=== PATIENT | female | born 1970 | race Caucasian/White ===

== ENCOUNTER → 2017-10-21 | Outpatient (CLI) | payer OTHER ==
[2017-10-21 16:07] LABS: ADD MAN DIFF? NO
[2017-10-21 16:13] LABS: BASO # 0.1 x10^3/uL (0.0-0.2); BASO % 1 % (0-3); EOS # 0.1 x10^3/uL (0.0-0.7); EOS % 1 % (0-3); HEMATOCRIT 43.6 % (36.0-47.0); HEMOGLOBIN 14.6 g/dL (12.0-15.5); LYMPH % 28 % (24-48); MEAN CORPUSCULAR HEMOGLOBIN 30 pg (25-35); MEAN CORPUSCULAR HGB CONC 34 g/dL (31-37); MEAN CORPUSCULAR VOLUME 90 fL (79-100); MONO # 0.5 x10^3/uL (0.0-1.1); MONO % 8 % (0-9); NEUT # 4.4 x10^3uL (1.8-7.7); NEUT % 63 % (31-73); PLATELET COUNT 369 x10^3/uL (140-400); RED BLOOD COUNT 4.84 x10^6/uL (3.50-5.40); RED CELL DISTRIBUTION WIDTH 13.3 % (11.5-14.5); WHITE BLOOD COUNT 7.1 x10^3/uL (4.0-11.0)
[2017-10-21 16:36] LABS: ALBUMIN 3.6 g/dL (3.4-5.0); ALBUMIN/GLOBULIN RATIO 0.9 (1.0-1.7); ALK PHOS 103 U/L (46-116); ALT (SGPT) 23 U/L (14-59); ANION GAP 9 (6-14); AST (SGOT) 13 U/L (15-37); BLOOD UREA NITROGEN 10 mg/dL (7-20); BUN/CREATININE RATIO 13 (6-20); CALCIUM 9.3 mg/dL (8.5-10.1); CARBON DIOXIDE 26 mmol/L (21-32); CHLORIDE 103 mmol/L (98-107); CREATININE 0.8 mg/dL (0.6-1.0); GFR 77.6; GLUCOSE 109 mg/dL (70-99); POTASSIUM 4.2 mmol/L (3.5-5.1); SODIUM 138 mmol/L (136-145); TOTAL BILIRUBIN 0.2 mg/dL (0.2-1.0); TOTAL PROTEIN 7.8 g/dL (6.4-8.2)
[2017-10-22 03:14] LABS: MRSA BY PCR Negative (Negative)
== END | disposition home or self-care (01) ==
LOC: SURGPAT 14:44
DX: Z01.812 Encounter for preprocedural laboratory examination (principal); M51.16 Intervertebral disc disorders with radiculopathy, lumbar region; M48.061 Spinal stenosis, lumbar region without neurogenic claudication
CPT/HCPCS: 36415; 80053; 85025; 87641

== ENCOUNTER 2017-10-28 07:25 | Day surgery (SDC) | payer OTHER ==
[~2017-10-28 07:25] MED LIST: LIDOCAINE 1% PF 2 ML VIAL. ID; MORPHINE SULFATE 4 MG/ML DISP.SYRIN. IV; ONDANSETRON PF 4 MG/2 ML VIAL. IV; PROPOFOL 100 ML IV; ceFAZolin 2GM PREMIX 2 GM/50 ML BAG IV; fentaNYL PF VIAL 100 MCG/2 ML VIAL IV
[2017-10-28 07:55] LABS: NEG OBC UR NEG; POS OBC UR POS; U PREG PATIENT NEGATIVE (NEG)
[2017-10-28] MEDS: IV RINGERS,LACTATED 1000ML 1,000 ML IV ×2 (08:04→12:08)
[2017-10-28] MEDS: SCOPOLAMINE 1.5MG PATCH. TD (08:04)
[2017-10-28] MEDS ORDERED: REMIFENTANIL 2 MG VIAL. IV ×2 (08:10→10:45)
[2017-10-28] MEDS ORDERED: ROCURONIUM 50 MG/5 ML VIAL. (08:10)
[2017-10-28] MEDS ORDERED: MIDAZOLAM HCL/PF 2 MG/2 ML VIAL. (08:10)
[2017-10-28] MEDS ORDERED: PHENYLEPHRINE 10 MG/ML VIAL. (08:11)
[2017-10-28] MEDS ORDERED: ONDANSETRON PF 4 MG/2 ML VIAL. (08:11)
[2017-10-28] MEDS ORDERED: DESFLURANE > 120 MINUTES IH (08:11)
[2017-10-28] MEDS ORDERED: DEXAMETHASONE SOD PHOS 20 MG/5 ML VIAL. (08:11)
[2017-10-28] MEDS ORDERED: PROPOFOL 20 ML IV (08:11)
[2017-10-28] MEDS ORDERED: PROPOFOL 50 ML IV (08:11)
[2017-10-28] MEDS ORDERED: GLYCOPYRROLATE 1 MG/5 ML VIAL. (08:11)
[2017-10-28] MEDS ORDERED: KETAMINE HCL 500 MG/10 ML VIAL. (08:20)
[2017-10-28] MEDS ORDERED: FAMOTIDINE 20 MG/2 ML VIAL (09:08)
[2017-10-28] MEDS ORDERED: diphenhydrAMINE 50 MG/ML VIAL (09:22)
[2017-10-28] MEDS ORDERED: KETOROLAC 30 MG/ML INJ FOR OR. INJ (09:23)
[2017-10-28] MEDS: KETOROLAC 60 MG/2 ML INJ FOR OR. (09:27)
[2017-10-28] MEDS: GELATIN SPONGE SIZE 100. (09:27)
[2017-10-28] MEDS: THROMBIN TOPICAL 20,000 UNIT SPRAY.SYRN KIT TP (09:27)
[2017-10-28] MEDS: BUPIVAC MPF-EPI 0.5%-1:200000 30 ML VIAL. INJ (09:27)
[2017-10-28] MEDS: BACITRACIN 50,000 UNIT in IV NORMAL SALINE 1000ML BAG 1,000 ML IRR (09:27)
[2017-10-28] MEDS: PROCHLORPERAZINE 10 MG/2 ML VIAL. IV ×2 (12:06→12:41)
[2017-10-28] MEDS: fentaNYL PF VIAL 100 MCG/2 ML VIAL IV ×2 (12:07→12:49)
[2017-10-28] MEDS: HYDROcodone/APAP 7.5/325MG 1 TAB TABLET PO (12:48)
== END 2017-10-28 14:22 | disposition home or self-care (01) ==
LOC: SURG 07:25
DX: M51.16 Intervertebral disc disorders with radiculopathy, lumbar region (principal); M48.061 Spinal stenosis, lumbar region without neurogenic claudication; Z79.899 Other long term (current) drug therapy; Z98.890 Other specified postprocedural states; Z72.89 Other problems related to lifestyle
CPT/HCPCS: 63030; 76000; 81025; 88304; 88311; 97162-GP; 97530-GP; G8978-CI-GP; G8979-CI-GP; G8980-CI-GP; J0690; J0780; J1100; J1200; J1885; J2250; J2405; J2704; J3010; J3490; J7030; S0028

== ENCOUNTER → 2019-12-29 | Outpatient (CLI) | payer OTHER ==
[2017-10-28 13:12] VITALS: BP 113/57
[~2019-12-29] MED LIST changes: +CYCL10TA2 PO; +DOCU-109 PO; +FLUO20CA20 PO; +GABA300C18 PO; +HYDR-2765 PO; +IBUP-1007 PO; +LACT1CAP6 PO; +LEVO1TAB33 PO; -LIDOCAINE 1% PF 2 ML VIAL. ID; -MORPHINE SULFATE 4 MG/ML DISP.SYRIN. IV; +NAPR220T70 PO; -ONDANSETRON PF 4 MG/2 ML VIAL. IV; -PROPOFOL 100 ML IV; -ceFAZolin 2GM PREMIX 2 GM/50 ML BAG IV; -fentaNYL PF VIAL 100 MCG/2 ML VIAL IV
--- NOTE | 2019-12-29 14:43 | RAD ---
3 lateral views of the lumbar spine including flexion and extension, without comparison for spondylolisthesis. FINDINGS: There is grade 1 spondylolisthesis of L4 on L5 which appears stable in both flexion and extension. Severe narrowing of L4-5 and L5-S1 intervertebral disc spaces is noted, and there is facet arthrosis at these levels as well. No fracture or acute osseous abnormality. IMPRESSION: 1. Spondyloarthropathy of the lower lumbar spine including fixed grade 1 spondylolisthesis of L4 and L5 as described. Electronically signed by: Rodrigue Monaco MD (12/29/2019 2:40 PM) [id number]
== END ==
LOC: RAD 11:37
PROVIDERS: ATTEND Neurological Surgery
DX: M43.16 Spondylolisthesis, lumbar region (principal); M47.817 Spondylosis without myelopathy or radiculopathy, lumbosacral region; M48.07 Spinal stenosis, lumbosacral region
CPT/HCPCS: 72020; 72120

== ENCOUNTER → 2020-03-10 | Outpatient (CLI) | payer OTHER ==
[2017-10-28 13:12] VITALS: BP 113/57
[2020-03-10 14:31] LABS: BASO # 0.1 x10^3/uL (0.0-0.2); BASO % 1 % (0-3); EOS # 0.1 x10^3/uL (0.0-0.7); EOS % 1 % (0-3); HEMATOCRIT 41.7 % (36.0-47.0); HEMOGLOBIN 14.3 g/dL (12.0-15.5); LYMPH # 1.8 x10^3/uL (1.0-4.8); LYMPH % 25 % (24-48); MEAN CORPUSCULAR HEMOGLOBIN 31 pg (25-35); MEAN CORPUSCULAR HGB CONC 34 g/dL (31-37); MEAN CORPUSCULAR VOLUME 90 fL (79-100); MONO # 0.5 x10^3/uL (0.0-1.1); MONO % 7 % (0-9); NEUT # 4.9 x10^3/uL (1.8-7.7); NEUT % 66 % (31-73); PLATELET COUNT 375 x10^3/uL (140-400); RED BLOOD COUNT 4.65 x10^6/uL (3.50-5.40); RED CELL DISTRIBUTION WIDTH 13.2 % (11.5-14.5); WHITE BLOOD COUNT 7.4 x10^3/uL (4.0-11.0)
[2020-03-10 14:42] LABS: PROTHROMBIN TIME PATIENT 12.9 SEC (11.7-14.0)
[2020-03-10 14:43] LABS: ALBUMIN 3.4 g/dL (3.4-5.0); ALBUMIN/GLOBULIN RATIO 0.9 (1.0-1.7); CALCIUM 8.8 mg/dL (8.5-10.1); CREATININE 0.9 mg/dL (0.6-1.0); GFR 67.1; POTASSIUM 3.7 mmol/L (3.5-5.1); TOTAL BILIRUBIN 0.2 mg/dL (0.2-1.0); TOTAL PROTEIN 7.4 g/dL (6.4-8.2)
== END | disposition home or self-care (01) ==
LOC: SURGPAT 13:23
PROVIDERS: ATTEND Neurological Surgery
DX: Z01.818 Encounter for other preprocedural examination (principal); Z11.59 Encounter for screening for other viral diseases; M43.16 Spondylolisthesis, lumbar region
CPT/HCPCS: 36415; 80053; 85025; 85610; 85730; 87641; U0003

== ENCOUNTER 2020-03-14 06:06 | Inpatient (IN) | payer OTHER ==
[2020-03-14] VITALS (9 sets, daily range): BP systolic 144–177; BP diastolic 74–96
[~2020-03-14] VITALS: Ht 175.3 cm; Wt 110.7 kg
[~2020-03-14 06:06] MED LIST changes: +BACITRACIN 50,000 UNIT in IV NORMAL SALINE 1000ML BAG 1,000 ML IRR ONE
[2020-03-14] MEDS ORDERED: THROMBIN TOPICAL 20,000 UNIT SPRAY.SYRN KIT TP ONE (06:48)
[2020-03-14] MEDS ORDERED: BUPIVACAINE-EPI 0.5%-1:200000 MPF 30 ML VIAL. ONE (06:48)
[2020-03-14] MEDS ORDERED: KETOROLAC 60 MG/2 ML VIAL. ONE (06:48)
[2020-03-14] MEDS ORDERED: GELATIN SPONGE SIZE 100. ONE (06:48)
--- NOTE | 2020-03-14 06:51 | PREOP HP ---
DATE OF SERVICE: 03/14/2020 PREOPERATIVE HISTORY AND PHYSICAL DICTATED BY: dictating for Dr. Salomón Miles. DATE OF SURGERY: 03/14/2020. HISTORY OF PRESENT ILLNESS: The patient is a pleasant 49-year-old who has difficulty with low back pain and pain in her right anterior thigh. She does notice some numbness in her left thigh. This started about 1 year ago spontaneously. She says that her back hurts all the time and rates it a 9/10 to a 10/10. Standing or sitting for too great a length of time is something that can increase her pain. Stretching helps her. She tried physical therapy and said that was too intense. She said that did not help her. In 10/2017, she underwent bilateral hemilaminotomies for large central disk herniation and did well from that surgery. PAST MEDICAL HISTORY: None noted. PAST SURGICAL HISTORY: Breast reduction and implant in 2006, lumbar microdiskectomy at L4-L5 in 10/2017. FAMILY HISTORY: Cancer. 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 . Exercises daily. Denies substance abuse. Denies tobacco use. Drinks alcohol 1-2 times per month. Drinks coffee and tea daily. ALLERGIES: No known drug allergies. CURRENT MEDICATIONS: Fluoxetine and Falmina. REVIEW OF SYSTEMS: A 12-point review of systems was obtained and is noncontributory except that mentioned above. PHYSICAL EXAMINATION: NEUROSURGERY EXAMINATION: GENERAL APPEARANCE: Alert, pleasant, in no acute distress. HEAD: Normocephalic and atraumatic. SKIN: Warm and dry. Well-healed lumbar incision. NEUROLOGIC: Alert and oriented x 3, normal recent and remote memory. Strength 5/5 in bilateral lower extremities. Sensory was intact to light touch in lower extremities bilaterally except for decrease in sensation in the anterior thighs bilaterally. Reflexes are present and symmetric in bilateral lower extremities except for decreased right knee jerk, negative straight leg raising bilaterally, normal gait. EXTREMITIES: No clubbing, cyanosis, or edema. MUSCULOSKELETAL: Lumbar paraspinal muscle bulk is normal, restricted range of motion of the lumbar spine, uush-or-retjaodz tenderness of the lumbar spine with palpation, normal range of motion of the extremities, lower bilaterally. IMAGING: Reviewed. I reviewed her imaging studies. She has postoperative changes at L4-L5 along with anterolisthesis at that level, which does not move on flexion and extension x-rays. Additionally, there is severe right foraminal narrowing. ASSESSMENT: 1. Spondylolisthesis, lumbar region. 2. Radiculopathy, lumbar region. PLAN: I believe the problem is a spondylolisthesis with motion and the right foraminal narrowing at L4-L5. It is responsible for the majority of her symptoms. She will require a right transforaminal decompression, which I feel would further destabilize her spine in view of her spondylolisthesis at that level. This will need to be combined with posterior instrumented fusion as well as an anterior interbody fusion. I discussed all this with her in detail. I outlined the postoperative course. I outlined the risks. I explained that she might not improve with the surgery, but that I expect that she will improve. She understands and would like to proceed. We will make the arrangements. SALOMÓN MILES MD DR: CHELSI/ralph JOB#: [id number] / [id number]
[2020-03-14] MEDS ORDERED: MORPHINE SULFATE 2 MG/ML VIAL. IV PRN (07:00)
[2020-03-14] MEDS ORDERED: HYDROmorphone 2 MG/ML VIAL IV PRN (07:00)
[2020-03-14] MEDS ORDERED: IV RINGERS,LACTATED 1000ML 1,000 ML IV SCH (07:00)
[2020-03-14] MEDS ORDERED: SCOPOLAMINE 1.5MG PATCH. TD ONE (07:00)
[2020-03-14] MEDS ORDERED: LIDOCAINE 1% PF 2 ML VIAL. ID PRN (07:00)
[2020-03-14] MEDS ORDERED: fentaNYL PF VIAL 100 MCG/2 ML VIAL IV PRN (07:00)
[2020-03-14] MEDS ORDERED: ONDANSETRON PF 4 MG/2 ML VIAL. IV PRN (07:00)
[2020-03-14] MEDS ORDERED: PROCHLORPERAZINE 10 MG/2 ML VIAL. IV PRN (07:00)
[2020-03-14] MEDS ORDERED: PROPOFOL 100 ML IV ONE (08:10)
--- NOTE | 2020-03-14 08:13 | RAD ---
CT lumbar spine without contrast HISTORY: Lumbar radiculopathy. Spondylolisthesis. COMPARISON: MRI lumbar spine December 07, 2019. FINDINGS: There is mild dextroconvex lumbar scoliosis apex at L4. Grade 1 anterolisthesis of 4 mm of L4 on L5. There is also right lateral subluxation of 6 mm of L4 on L5 on the coronal reconstruction noted. No acute fracture. There is a 1 cm lytic Schmorl's nodes lower L4 vertebral body which extends to the L4-L5 disc space associated with advanced disc height loss. There are bilateral L4 spondylolysis defects. There is also a probable left L4 laminotomy/foraminotomy. Linear scarring dorsal paraspinal tissues. Disc disease described below. L1-L2: Unremarkable. L2-L3: Unremarkable. L3-L4: Unremarkable. L4-L5: Advanced disc height loss, vacuum disc phenomenon, mild vertebral endplate spurring, moderate to large disc bulge, and facet hypertrophy and spurring. There is probable severe spinal canal stenosis the density of the dural sac appears be compressed to a diameter of 6 mm or less between the disc bulge and dorsal epidural fat and lamina. Indistinct soft tissue density at the left laminotomy/foraminotomy presumably scar tissue. Severe left neural foraminal stenosis the extent of which may increase the risk of left L4 nerve impingement. There is moderate to severe right neural foraminal stenosis. This is grossly stable to prior MR imaging. L5-S1: Advanced disc height loss, vacuum disc, vertebral endplate spurring, moderate disc bulge, and facet spurring. There is probable mild spinal canal stenosis. Moderate to severe neural foraminal stenoses. This is grossly stable to prior MR imaging. IMPRESSION: No acute osseous injury lumbar spine. Lower lumbar disc disease and arthritic change with spinal canal and neural foraminal stenoses with the greatest extent of stenotic disease which is severe at L4-L5 as described above. Bilateral L4 spondylolysis and grade 1 anterolisthesis as described above. Exposure: One or more of the following individualized dose reduction techniques were utilized for this examination: 1. Automated exposure control 2. Adjustment of the mA and/or kV according to patient size 3. Use of iterative reconstruction technique Electronically signed by: Joseph Scanlon MD (03/14/2020 8:11 AM) [id number]
[2020-03-14] MEDS ORDERED: ROCURONIUM 50 MG/5 ML VIAL. ONE (08:25)
[2020-03-14] MEDS ORDERED: fentaNYL PF VIAL 100 MCG/2 ML VIAL ONE ×2 (08:25→15:42)
[2020-03-14] MEDS ORDERED: DEXAMETHASONE SOD PHOS 20 MG/5 ML VIAL. ONE (08:26)
[2020-03-14] MEDS ORDERED: LIDOCAINE 2% PF 5 ML VIAL. ONE (08:26)
[2020-03-14] MEDS ORDERED: MIDAZOLAM HCL/PF 2 MG/2 ML VIAL. ONE (08:26)
[2020-03-14] MEDS ORDERED: PROPOFOL 10 MG/ML (20ML) VIAL. IV ONE (08:26)
[2020-03-14] MEDS ORDERED: REMIFENTANIL 2 MG VIAL. IV ONE (08:26)
[2020-03-14] MEDS ORDERED: ONDANSETRON PF 4 MG/2 ML VIAL. ONE (08:26)
[2020-03-14] MEDS ORDERED: PHENYLEPHRINE 10 MG/ML VIAL. ONE ×2 (08:32→11:48)
[2020-03-14] MEDS ORDERED: GLYCOPYRROLATE 1 MG/5 ML VIAL. ONE (09:25)
[2020-03-14] MEDS ORDERED: REMIFENTANIL 1 MG VIAL. IV ONE ×3 (11:01→14:01)
[2020-03-14] MEDS ORDERED: PROPOFOL 50 ML IV ONE ×2 (11:01→13:36)
[2020-03-14] MEDS ORDERED: ceFAZolin SODIUM IV Push 1 GM VIAL. IVP ONE (12:53)
[2020-03-14] MEDS ORDERED: 0.9 % SODIUM CHLORIDE 10 ML DISP.SYRIN. IV PRN (15:45)
[2020-03-14] MEDS ORDERED: CALCIUM CARBONATE 500 MG TAB.CHEW PO PRN (15:45)
[2020-03-14] MEDS ORDERED: NALOXONE 0.4 MG/ML VIAL. IV PRN (15:45)
[2020-03-14] MEDS ORDERED: oxyCODONE/APAP 5/325 1 TAB TABLET PO PRN (15:45)
[2020-03-14] MEDS: fentaNYL PF VIAL 100 MCG/2 ML VIAL IV PRN ×4 (15:45→16:19)
[2020-03-14] MEDS ORDERED: fentaNYL PF VIAL 100 MCG/2 ML VIAL IVP PRN (15:45)
[2020-03-14] MEDS ORDERED: MAGNESIUM HYDROXIDE 2,400 MG/30 ML ORAL.SUSP. PO PRN (15:45)
[2020-03-14] MEDS ORDERED: diphenhydrAMINE HCL 25 MG CAPSULE PO PRN (15:45)
[2020-03-14] MEDS ORDERED: MAG HYDROX/ALUMINUM HYD/SIMETH 30 ML ORAL.SUSP PO PRN (15:45)
[2020-03-14] MEDS ORDERED: METHOCARBAMOL 750 MG TABLET PO PRN (15:45)
[2020-03-14] MEDS ORDERED: ONDANSETRON PF 4 MG/2 ML VIAL. IVP PRN (15:45)
[2020-03-14] MEDS ORDERED: ACETAMINOPHEN 325 MG TABLET. PO PRN (15:45)
[2020-03-14] MEDS: oxyCODONE/APAP 5/325 1 TAB TABLET PO PRN ×2 (18:14→22:43)
[2020-03-14] MEDS: DOCUSATE SODIUM 100 MG CAPSULE. PO SCH (20:49)
[2020-03-14] MEDS: POTASSIUM CL 20MEQ D5-0.45NACL 1,000 ML IV SCH (20:57)
[2020-03-14] MEDS: ceFAZolin SODIUM IV Push 1 GM VIAL. IVP SCH (22:52)
--- NOTE | 2020-03-14 23:00 | NUR ---
Percocet given for c/o surgical pain. Also c/o "soreness" to left shoulder and "numbness" to left forearm which are new symptoms. Percocet given and ice packs placed to shoulder and back.
[2020-03-15 03:00] VITALS: BP 165/78
[2020-03-15] MEDS: ceFAZolin SODIUM IV Push 1 GM VIAL. IVP SCH (06:14)
[2020-03-15] MEDS: oxyCODONE/APAP 5/325 1 TAB TABLET PO PRN (06:20)
[2020-03-15] MEDS: POTASSIUM CL 20MEQ D5-0.45NACL 1,000 ML IV SCH (06:34)
[2020-03-15 07:00] VITALS: BP 112/63
[2020-03-15] MEDS: DOCUSATE SODIUM 100 MG CAPSULE. PO SCH (08:48)
[2020-03-15] MEDS ORDERED: LEVONORGESTREL ETH ESTRADIOL PO SCH (09:00)
[2020-03-15] MEDS ORDERED: LACTOBACILLUS RHAMNOSUS GG 1 CAPSULE. PO SCH (09:00)
[2020-03-15] MEDS ORDERED: FLUoxetine HCL 20 MG CAPSULE PO SCH (09:00)
[2020-03-15 11:00] VITALS: BP 118/65
[2020-03-15] MEDS ORDERED: DOCU-153 PO (12:13)
[2020-03-15] MEDS ORDERED: OXYC1TAB15 PO (12:13)
[2020-03-15] MEDS ORDERED: METH750T2 PO (12:13)
--- NOTE | 2020-03-15 12:15 | DISCH ---
DISCHARGE INSTRUCTIONS Condition on Discharge Condition on Discharge: Stable Activity After Discharge Activity Instructions for Disc: Activity as tolerated, Avoid exertion Bathing Instructions: Shower-keep dressing dry Lifting Instructions after Dis: No heavy lifting, No pulling or pushing, Do not lift >10 pounds Driving Instructions after Dis: No driving for 2 weeks Diet after Discharge Additional Diet Restrictions: resume home diet Wound Incision Care Wound/Incision Care: Ice to area for comfort Other wound/incision instructi: may remove dressing in 48 hours or when dry, no soaking Contacting the after DC Call your doctor for: Concerns you may have Follow-Up Follow up with: Dr. Miles's nurse [phone] IND[place] MILES MD Mar 15, 2020 12:15
--- NOTE | 2020-03-16 20:31 | OP ---
DATE OF SURGERY: 03/14/2020 PREOPERATIVE DIAGNOSES: Spondylolisthesis with right foraminal narrowing L4-L5 and severe right lumbar radiculopathy. POSTOPERATIVE DIAGNOSES: Spondylolisthesis with right foraminal narrowing L4-L5 and severe right lumbar radiculopathy. OPERATION PERFORMED: 1. Transforaminal decompression L4-L5. 2. Posterior instrumentation, L4-L5, posterolateral fusion, L4-L5, microdiskectomy L4-L5. The operation was done with multimodality monitoring including EMG, SSEP, fluoroscopy, microscopic dissection. We used Depop guidance. CHIEF JUVENILE [employer]OBATION OFFICER: MAICO Fitzpatrick assisted with the surgery. She assisted with the exposure, the microdecompression as well as the closure. OPERATIVE INDICATIONS: The patient is a very pleasant 49-year-old who several years ago underwent microdecompressive surgery at L4-L5 and did quite well. She has developed increasing lower back pain, which has become severe along with pain, which radiated into her right lower extremity into the anterior thigh. On imaging studies, there was motion of the spondylolisthesis at L4-L5. I believe the anterior motion regarding her spondylolisthesis was responsible for right foraminal narrowing and severe radiculopathy. I recommended right foraminal decompression combined with an instrumented fusion. DESCRIPTION OF PROCEDURE: Following general endotracheal anesthesia, the patient was positioned prone on the Jose Luis table. Lumbar region prepped and draped in the standard fashion. SHIV hose and AV impulse boots were applied for DVT prophylaxis. The microscope was draped. Fluoroscopy was draped and brought into field. Monitoring was established. Ancef 2 g was given less than 1 hour prior to initiation of the surgery. Using fluoroscopic guidance, the iliac posts were placed into the left iliac crest and the [employer] system was initialized. I then made a midline incision incorporating the majority of her previous incision, dissected down through skin and subcutaneous tissue, reflected the paraspinal muscles, and beginning on the left side, I placed a self-retaining retractor and exposed the lamina, facets and transverse processes of L4 and L5. I drilled in the posterior aspect of the pedicles with a high speed air drill using anatomic landmarks, I passed the black ball with stimulated monitoring followed by the ball tip probe, followed by the tap again with monitoring. At this point, I aspirated 20 mL of bone marrow from the left iliac crest and mixed this with allograft bone. I excoriated the lateral aspect of the facets and also excoriated transverse processes and packed allograft bone into the left lateral gutter. I then placed the pedicle screws in L4 and L5 using the Republic system, placed the holly, but did not yet torque the system. I moved to the right side. In a similar fashion, I exposed the lamina and the facets and the transverse processes. Again, I worked and removed a considerable amount of scarring. I then drilled in the posterior aspect of the pedicles of L4 and L5 and I passed the black ball with stimulated monitoring followed by ball tip probe, followed by tap and I closed these openings then with bone wax. I brought in the microscope at this point using the high speed air drill and clearing away further scar, unroofed the foramen on the right side down and visualized the L4 root. The root was densely scarred at the underlying disk within the foramen. I worked medially as far as was safe and I fully decompressed the entire region. I did not feel that an interbody cage could be placed safely because of the scarred position of the L4 root. I placed pedicle screws on the right side at L4-L5, and again using the Republic system, placed the holly. I torqued the screws sequentially on the right. During this time of course, I assured that there was plenty of bone graft material and augmented this even further into the right lateral gutter. I then went to the left side and added further bone material. I also torqued the left side. I irrigated again and again rechecked by torquing sequentially. At this point, I felt that I had an excellent decompression combined with an excellent posterior instrumented fusion and posterolateral fusion. I irrigated copiously, closed the wound in layers with absorbable suture. Skin was closed with 4-0 subcuticular stitch. The patient awakened uneventfully, taken to recovery room in excellent condition with normal strength in her lower extremities. I was quite pleased with the surgery. [place] MILES MD DR: CHELSI/ralph JOB#: [id number] / [id number]
--- NOTE | 2020-03-17 12:07 | PATHOLOGY ---
[facility] Accession Number: [id number] . 01 Material submitted: . vertebral column - LUMBAR DECOMPRESSION . 01 Clinical history: . LUMBAR SPONDYLOLITHESIS RADICULOPATHY LUMBAR DECOMPRESSION . 02 Diagnosis: Bone and soft tissue "L4-5", decompression: - Hyaline cartilage with reactive/degenerative changes. - Dense fibrous tissue with reactive change. - Unremarkable fragments of bony trabeculae. 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 02 Electronically signed: . Gregory Gray MD, Pathologist NPI- [id number] . 01 Gross description: . The specimen is received in formalin, labeled "Gretchen Jeaan, lumbar decompression". Received are multiple segments of pale smith bone admixed with possible gritty tissue measuring 1.0 x 1.0 x 0.2 cm in aggregate dimensions. The specimen is filtered and entirely submitted in cassette A1, following light decalcification. (CAA; 03/15/2020) QAC/QAC 03/15/2020 1648 Local . 02 Pathologist provided ICD-10: M51.36 . 02 CPT . 387166, [id number] Specimen Comment: A courtesy copy of this report has been sent to [phone], [phone] Specimen Comment: [id number] Specimen Comment: Report sent to / DR BAER Performed at: 01 [facility] [address], [place] [id number] MD Kwasi Olsen MD Phone: [phone] Performed at: 02 [facility] [address] [place], [place] [id number] MD Nicola De Leon MD Phone: [phone]
== END 2020-03-15 12:25 | disposition home or self-care (01) | DRG 460 ==
LOC: OPSVCIP 06:06 → 4 NORTH 17:26
PROVIDERS: ADMIT Neurological Surgery; ATTEND Neurological Surgery
PROC: 01NB0ZZ Release Lumbar Nerve, Open Approach (ICD-10-PCS; 2020-03-14)
PROC: 0SB20ZZ Excision of Lumbar Vertebral Disc, Open Approach (ICD-10-PCS; 2020-03-14)
PROC: 4A11X4G Monitoring of Peripheral Nervous Electrical Activity, Intraoperative, External Approach (ICD-10-PCS; 2020-03-14)
PROC: 0SG00K1 Fusion of Lumbar Vertebral Joint with Nonautologous Tissue Substitute, Posterior Approach, Posterior Column, Open Approach (ICD-10-PCS; principal; 2020-03-14 08:30)
DX: M43.16 Spondylolisthesis, lumbar region (principal); M54.16 Radiculopathy, lumbar region
CPT/HCPCS: 36415; 72131; 76000; 81025; 86850; 86900; 86901; 88304; 88311; A7015; C1713; J0690; J1100; J1885; J2250; J2370; J2405; J2704; J3010; J3480; J3490; J7030; J7120; G0378

== ENCOUNTER → 2020-06-06 | Outpatient (CLI) | payer OTHER ==
[~2020-06-06] MED LIST changes: -BACITRACIN 50,000 UNIT in IV NORMAL SALINE 1000ML BAG 1,000 ML IRR ONE; +DOCU-153 PO; +METH750T2 PO; +OXYC1TAB15 PO
--- NOTE | 2020-06-06 15:46 | RAD ---
EXAM: LUMBAR SPINE 2-3V 06/06/2020 12:00 AM CLINICAL INDICATION:Lumbar fusion COMPARISON:CT lumbar spine 03/14/2020 TECHNIQUE:AP and lateral views of lumbar spine FINDINGS:There 5 nonrib-bearing lumbar vertebral bodies. No acute fracture. 6 mm anterolisthesis of L4 on L5 is unchanged. There are new bilateral pedicle screws and connecting rods at L4-L5 without evidence of loosening. Severe disc space narrowing at L4-L5 and moderate disc space narrowing at L3-L4 is unchanged. IMPRESSION: 1. New posterior fusion at L4-L5 without complication. 2. Unchanged grade 1 anterolisthesis at L4-L5 and degenerative disc disease at L4-L5 and L5-S1. Electronically signed by: Adali Cabrera MD (06/06/2020 3:44 PM) [id number]
== END ==
LOC: RAD 10:59
PROVIDERS: ATTEND Neurological Surgery
DX: M51.37 Other intervertebral disc degeneration, lumbosacral region (principal); M43.16 Spondylolisthesis, lumbar region; M48.061 Spinal stenosis, lumbar region without neurogenic claudication; Z98.1 Arthrodesis status
CPT/HCPCS: 72100